=== PATIENT | female | born 1960 | race Caucasian/White ===

== ENCOUNTER 2022-07-31 13:46 | Outpatient (RCR) | payer OTHER, SELFPAY ==
--- NOTE | ~2022-07-31 | XR_ITS ---
EXAMINATION: XR TIBIA AND FIBULA, LEFT CLINICAL INFORMATION: Left pretibial wound. COMPARISON: None available. TECHNIQUE: AP and lateral views of the left tibia and fibula were obtained. FINDINGS: There is no evidence of acute fracture or dislocation of the left tibia or fibula. No destructive bony lesions identified. No periosteal reaction. There is noted to be soft tissue defect involving the soft tissues anterior to the proximal third of the left tibia consistent with laceration. No gas within the soft tissues identified. No radiopaque foreign body. XR/XR tibia fibula LT 2V IMPRESSION: Soft tissue defect and edema without evidence of underlying bony abnormality.
== END 2022-09-11 16:00 | disposition home or self-care (01) ==
LOC: HO.WCC 13:46
PROVIDERS: PCP Internal Medicine; Visit Provider Physician Assistant
DX: T81.31XA Disruption of external operation (surgical) wound, not elsewhere classified, initial encounter (principal); L97.822 Non-pressure chronic ulcer of other part of left lower leg with fat layer exposed; I87.2 Venous insufficiency (chronic) (peripheral); G62.9 Polyneuropathy, unspecified; I10 Essential (primary) hypertension; I73.00 Raynaud's syndrome without gangrene; Z87.891 Personal history of nicotine dependence; Z85.820 Personal history of malignant melanoma of skin
CPT/HCPCS: 11042; 73590; 99212; 99213

== ENCOUNTER 2022-12-08 14:00 | Outpatient (RCR) | payer OTHER, SELFPAY | END 2023-01-06 14:37 | disposition home or self-care (01) | LOC: HO.WCC 14:00 | PROVIDERS: PCP Internal Medicine; Visit Provider Physician Assistant | DX: Z09 Encounter for follow-up examination after completed treatment for conditions other than malignant neoplasm (principal); I87.2 Venous insufficiency (chronic) (peripheral); R60.9 Edema, unspecified; G62.9 Polyneuropathy, unspecified; I10 Essential (primary) hypertension; I73.00 Raynaud's syndrome without gangrene; Z85.820 Personal history of malignant melanoma of skin; Z87.891 Personal history of nicotine dependence; Z87.2 Personal history of diseases of the skin and subcutaneous tissue | CPT/HCPCS: 11042; 99212 ==

== ENCOUNTER 2025-02-02 07:57 | Outpatient (RCR) | payer MEDICARE, SELFPAY | END 2025-02-02 16:00 | disposition home or self-care (01) | LOC: HO.WCC 07:57 | PROVIDERS: PCP Internal Medicine Rheumatology; Visit Provider Surgery Vascular Surgery | DX: I87.303 Chronic venous hypertension (idiopathic) without complications of bilateral lower extremity (principal); I73.00 Raynaud's syndrome without gangrene; G62.9 Polyneuropathy, unspecified; Z87.891 Personal history of nicotine dependence; Z86.73 Personal history of transient ischemic attack (TIA), and cerebral infarction without residual deficits; Z85.828 Personal history of other malignant neoplasm of skin | CPT/HCPCS: 99212 ==